=== PATIENT | female | born 1955 | race Caucasian/White ===

== ENCOUNTER 2018-01-12 10:23 | Emergency (ER) | payer MEDICARE, BC ==
[~2018-01-12] VITALS: Ht 162.6 cm; Wt 77.1 kg
[2018-01-12] MEDS ORDERED: DILTIAZEM HCL 5 MG/ML 5 ML VIAL IV STA (10:43)
[2018-01-12 10:53] LABS: BASOPHILS # (AUTO) 0.1 (0.0-0.1); BASOPHILS % 0.9 % (0.0-1.0); EOSINOPHILS # (AUTO) 0.5 (0.0-0.4); EOSINOPHILS % 3.9 % (0.0-6.0); HEMATOCRIT 49.3 % (34.2-44.1); HEMOGLOBIN 16.6 g/dL (12.0-16.0); LYMPHOCYTES % 17.7 % (18.0-39.1); MEAN CORPUSCULAR HEMOGLOBIN 35.8 pg (28-32); MEAN CORPUSCULAR HGB CONC 33.7 g/dL (31-35); MEAN CORPUSCULAR VOLUME 106.3 fL (81-99); MONOCYTES # (AUTO) 0.7 (0.2-0.8); MONOCYTES % 6.3 % (4.4-11.3); NEUTROPHILS # (AUTO) 8.1 (2.1-6.9); NEUTROPHILS % 70.2 % (38.7-80.0); PLATELET COUNT 406 x10e3/uL (140-360); RED BLOOD COUNT 4.64 x10e6/uL (3.6-5.1)
[2018-01-12 11:02] LABS: INR 1.01; PROTHROMBIN TIME 12.5 seconds (11.9-14.5)
[2018-01-12 11:09] LABS: ALBUMIN 3.3 g/dL (3.5-5.0); ALBUMIN/GLOBULIN RATIO 0.8 (0.8-2.0); ANION GAP 12.7 mmol/L (8-16); CALCIUM 9.4 mg/dL (8.4-10.2); CREATININE, SERUM 1.19 mg/dL (0.57-1.11); POTASSIUM 3.7 mmol/L (3.5-5.1)
[2018-01-12] MEDS ORDERED: HYDRALAZINE HCL 20 MG/ML VIAL IV ONE (11:30)
[2018-01-12] MEDS ORDERED: SODIUM CHLORIDE 0.9% 1000ML 2,000 ML ONE (11:43)
[2018-01-12] MEDS ORDERED: SODIUM CHLORIDE 0.9% 1000ML 1,000 ML IV STA (11:43)
--- NOTE | 2018-01-12 11:49 | Diagnostic Imaging Report ---
History:Left side numbness Comparison studies:None Technique: Axial images were obtained from the skull base to the vertex. Coronal and sagittal images reconstructed from the axial data. Intravenous contrast: None Findings: Scalp/skull: No abnormalities. Extra-axial spaces: No masses. No fluid collections. Brain sulci: Mildly prominent. Ventricles: Mild compensatory dilatation. No hydrocephalus. Parenchyma: Few hypodensities in the supratentorial white matter are small vessel ischemic changes. No masses, hemorrhage, acute or chronic cortical vascular insults. Sellar/suprasellar region: No abnormalities. Craniocervical junction: Patent foramen magnum. No Chiari one malformation. Incidental findings: Atherosclerotic calcifications in the carotid siphons . Impression: No acute abnormalities. Chronic findings: 1. Mild generalized volume loss. 2. Mild supratentorial white matter small vessel ischemic changes. Signed by: DR Cody Jackson M.D. on 01/12/2018 11:45 AM
[2018-01-12] MEDS ORDERED: DILTIAZEM HCL IV 5MG/ML 25 ML VIAL ONE ×2 (12:12→12:13)
[2018-01-12] MEDS ORDERED: DILTIAZEM HCL VIAL 0 ML ONE (12:13)
[2018-01-12 12:46] LABS: CREATINE KINASE 45 IU/L (29-168)
[2018-01-12] MEDS ORDERED: SODIUM CHLORIDE 0.9% 1000ML 1,000 ML IV SCH (13:15)
--- NOTE | 2018-01-12 17:08 | Consultation ---
DATE OF CONSULTATION: January 12, 2018 NEUROLOGY CONSULTATION HISTORY OF PRESENT ILLNESS: Ms. Stuart is a 62-year-old, right hand dominant woman with past medical history significant for hypertension, diabetes mellitus type 2, and tobacco use, who presented to the emergency center at [facility] on the morning of January 12, 2018, with symptoms concerning for a stroke. The patient awoke between 5 and 6 a.m. on the day of admission in her normal state of health. Sometimes between 8 and 8:30 a.m. on the day of admission, the patient experienced the acute onset of numbness affecting the fingertips of the left hand. Ms. Stuart took aspirin 325 mg by mouth when she noticed these symptoms. Sometime later, the patient arose to use the restroom. At that time, she noted left hemiparesis affecting the arm and leg equally, left hemihypesthesia affecting the face, arm, and leg, and an unsteady gait secondary to weakness of the left leg. Ms. Stuart does not report a visual field cut or other disturbance, dysarthria, aphasia, facial droop, dizziness, or confusion. Ms. Stuart notified emergency medical services and was transported via ambulance to the emergency center at [facility] for further evaluation and treatment. Upon admission to the emergency center, the patient's blood pressure was 207/88 mmHg with a pulse of 76 beats per minute. The patient's neurological examination was significant for left-sided weakness and numbness. A CT of the brain without contrast was performed and did not show evidence of recent large territorial ischemia, hemorrhage, mass or mass affect. I was notified by the emergency center attending physician at approximately 3-1/2 to 4 hours after symptom onset. After discussing the patient with the emergency center attending, treatment with intravenous tPA was recommended as the patient had no absolute contraindications to treatment with this medication and was still within the 4-1/2-hour time window. However, Ms. Stuart declined treatment with tPA. REVIEW OF SYSTEMS: Palpitations, shortness of breath, left facial numbness, left arm and leg weakness, left arm and leg numbness, impairment of gait. Otherwise, the 12-point review of systems is negative. PAST MEDICAL HISTORY: Hypertension, diabetes mellitus type 2, CML, polycythemia vera. PAST SURGICAL HISTORY: Hemorrhoidectomy. PAST HOSPITALIZATIONS: Surgeries and procedures listed, childbirth times 3. FAMILY HISTORY: Hypertension. SOCIAL HISTORY: The patient is a . She is retired. Ms. Stuart reports smoking 1 to 1-1/2 packs per day for the past 40-plus years. She does not report current or prior alcohol or recreational drug use. HOME MEDICATIONS: Aspirin 325 mg by mouth daily, Bystolic, glimepiride, hydroxyurea, allopurinol, vitamin B12 supplement, iron supplement. ALLERGIES: PENICILLIN. NO KNOWN FOOD ALLERGIES. NO KNOWN ALLERGIES TO LATEX. NO KNOWN ALLERGIES TO IODINE OR OTHER CONTRAST MATERIALS. PHYSICAL EXAMINATION VITAL SIGNS: Height 64 inches, weight 170 pounds. BMI 29.2 kg per meter squared. Blood pressure 179/89 mmHg. Pulse 77 beats per minute. Respiratory rate 18 breaths per minute. Oxygen saturation 98% on room air. GENERAL: Patient is awake and alert, does not appear distressed. Overweight. HEENT: Normocephalic, atraumatic. Pupils are equal, round and reactive to light. Moist mucous membranes. NECK: Supple. No appreciable thyromegaly. No appreciable carotid bruits. CARDIOVASCULAR: S1 and S2, regular rate and rhythm. No murmurs, rubs or gallops. RESPIRATORY: Clear to auscultation bilaterally. No wheezes, rhonchi or rales. EXTREMITIES: The skin is warm and dry. No clubbing, cyanosis, or edema. The posterior tibial and dorsalis pedis pulses are 2+ and symmetric. SKIN: No rashes or lesions. NEUROLOGIC EXAMINATION MEMORY/ATTENTION: The patient is awake and alert, oriented to person, place, time and situation. CRANIAL NERVES: Cranial nerve I: Not tested. Cranial nerves II, III, IV and : Pupils are equal and round, react briskly to light (from 4 mm to 2 mm). Extraocular movements are intact. No nystagmus. Cranial nerve V: Sensation to light touch and pinprick is diminished in the left V1 through V3 distributions. Strength of the temporalis and masseter muscles is within normal limits. Cranial nerve VII: The face is symmetric as are all facial movements. Strength is within normal limits. Cranial nerve VIII: Hearing is intact to finger rub bilaterally. Cranial nerve IX and X: Soft palate elevates equally and symmetrically. Cranial nerve XI: Normal strength of the bilateral sternocleidomastoid and trapezius muscles. Cranial nerve XII: The tongue protrudes midline and moves symmetrically from side to side. STRENGTH: Bulk is normal. Strength is 5/5 in the right deltoid, biceps, triceps, wrist flexors and extensors, finger flexors and extensors, intrinsic hand muscles, hip flexors, knee flexors and extensors, ankle dorsiflexion and plantarflexion, and intrinsic foot muscles. Tone is normal. The patient cannot lift the left arm or left leg against gravity. Strength is grossly 2/5 with decreased tone. DTRs: Deep tendon reflexes are 2+ and symmetric at the triceps, biceps, brachial radialis, patellas and Achilles. Plantar responses are flexor bilaterally. Absent clonus. SENSATION: Sensation is diminished to light touch and pinprick over the left arm and left leg. CEREBELLAR: Rwaczm-ligl-gfbxxs and heel-pierre movements are intact without dysmetria or other impairment on the right. Rapid alternating movements are intact on the right. Cerebellar function is impaired on the left, but within the bounds of paresis. GAIT: Deferred. SPEECH: Spontaneous speech is normal without appreciable dysarthria or aphasia. Repetition is intact. INVOLUNTARY MOVEMENTS: None. PRONATOR DRIFT: As per motor exam. LABORATORY DATA: Sodium 137, potassium 3.7, chloride 105, carbon dioxide 23, anion gap 12.7, BUN 12, creatinine 1.19, estimated GFR 46. TYJ-wy-xxyztuiluc ratio 10. Glucose 214, calcium 9.4, total bilirubin 0.4, AST 14, ALT 22, alkaline phosphatase 84, total protein 7.3, albumin 3.3, globulin 4.0, uwiqokc-fo-zjrmowwo ratio 0.8. Creatine kinase 45, CK-MB 1.40, troponin I less than 0.001. The CBC with differential and platelets reveals a white blood cell count of 11.55 with 70.2% neutrophils, 17.7% lymphocytes, 6.3% monocytes, 3.9% eosinophils and 0.9% basophils. The hemoglobin and hematocrit are 16.6 and 49.3 respectively. The platelet count is 406. PT 12.5 and INR 1.01. DIAGNOSTIC STUDIES: CT of the brain without contrast, 01/12/2018: On my review, there is no evidence of recent large territorial ischemia, hemorrhage, mass or mass affect. ASSESSMENT AND PLAN: Ms. Stuart is a 62-year-old, right hand dominant woman with multiple vascular risk factors, who presents with symptoms of subcortical stroke in the right middle cerebral artery distribution. The patient's neurological examination is significant for moderate to severe left hemiparesis of the left arm and left leg and hemihypesthesia to light touch and pinprick on the left. The patient's laboratory data and diagnostic studies have been reviewed and are documented above. The emergency center is attempting to transfer the patient to the [facility] for a higher level of care. If Ms. Stuart remains at [facility], recommendations are as follows: 1. Lipid panel and hemoglobin A1c. 2. MRI of the brain without contrast. 3. Echocardiogram. 4. Bilateral carotid artery ultrasound with Doppler. 5. Discontinue aspirin. 6. Prescribed Plavix 75 mg by mouth daily for stroke prophylaxis. 7. Allow permissive hypertension pending evaluation of the extracranial vasculature. Goal blood pressure is 160 to 200 over 70 to 100 mmHg. 8. Tight glycemic control. 9. Speech, occupational therapy, and physical therapy consultations. 10. Tobacco cessation counseling. 11. Defer treatment of the remaining medical comorbidities to the primary and other services. Thank you for this consultation. I will continue to follow this patient should she remain in the hospital. Time spent: 70 minutes. Job#: [id number]
== END 2018-01-12 14:42 | disposition other institution (70) ==
LOC: ER 10:23
DX: R53.1 Weakness (principal); R20.2 Paresthesia of skin; I63.9 Cerebral infarction, unspecified; D47.3 Essential (hemorrhagic) thrombocythemia; R26.2 Difficulty in walking, not elsewhere classified; I10 Essential (primary) hypertension; D45 Polycythemia vera; Z85.6 Personal history of leukemia
CPT/HCPCS: 36415; 70450; 80053; 82550; 82553; 84484; 85025; 85610; 93005; 99284; J0360; J7030

== ENCOUNTER → 2020-04-26 | Outpatient (CLI) | payer MEDICARE ==
--- NOTE | 2020-04-26 11:38 | Diagnostic Imaging Report ---
EXAMINATION: MRI of the cervical spine without contrast HISTORY: 64-year-old female with neck pain radiating to left shoulder/upper extremity COMPARISON: None available TECHNIQUE: Sagittal T1, T2, STIR; axial T2, gradient echo. FINDINGS: Curvature: Normal lordosis. Vertebrae: No evidence of neoplasm, infection, or fracture. Foramen magnum: No mass, Chiari malformation, or basilar invagination. Spinal Cord: Normal size and signal intensity. Soft Tissues: Unremarkable. Degenerative changes: C1-C2: Unremarkable. C2-C3: Unremarkable. C3-C4: Mild facet retrolisthesis on the left. No canal or foraminal stenoses. C4-C5: Asymmetric right disc disc bulge and small right paracentral superiorly migrated 3 mm AP diameter disc extrusion. Minimal flattening of the right ventral cord. Mild uncovertebral and facet arthrosis mainly on the left. Mild spinal canal and foraminal narrowing. C5-C6: Asymmetric left disc osteophyte complex formation, bilateral uncovertebral and facet arthrosis. Moderately severe right and severe left foraminal stenosis, compression upon the exiting left C6 root is suspected. Mild spinal canal stenosis. C6-C7: Disc osteophyte complex formation, bilateral uncovertebral and facet arthrosis. Mild spinal canal stenosis. Mild right and moderate left foraminal stenoses. C7-T1: Minimal disc bulge and facet necrosis. No spinal canal or foraminal stenosis. IMPRESSION: 1. Severe left and moderately severe right degenerative foraminal stenoses at C5-C6, probable compression upon the exiting left C6 root may explain the patient's symptoms. 2. Moderate degenerative foraminal stenoses on the left oral and mild on the right at C6-7. 3. Small right central disc herniation at C4-C5 flattens the ventral cord without definite compression or abnormal signal within the cord. 4. Mild degenerative canal stenosis at C5-C6 and C6-7. Signed by: Dr. Kristy Mitchell M.D. on 04/26/2020 11:34 AM
--- NOTE | 2020-04-26 12:19 | Diagnostic Imaging Report ---
TECHNIQUE: Magnetic resonance imaging of the LEFT SHOULDER was performed WITHOUT injected contrast. COMPARISON: None available. HISTORY: Left shoulder pain FINDINGS: MUSCLES AND TENDONS: Rotator Cuff: Tendons: Supraspinatus: Mild tendinosis along the anterior fibers of the supraspinatus tendon without discrete tear. Infraspinatus: Intact Teres Minor: Intact Subscapularis: Intact Muscles: No focal muscle atrophy. Biceps Tendon: The long head of the biceps tendon is intact and within the intertubercular groove. GLENOHUMERAL JOINT: Glenoid Labrum: Suspected sublabral foramen at the anterosuperior labrum. Fraying along the posterosuperior without discrete displaced labral tear. Articular Cartilage: Low-grade cartilage thinning along the glenoid without full-thickness defect. AC JOINT AND ACROMION: Mild hypertrophic degenerative changes of the acromioclavicular joint. Type II acromion. BONE: No specific evidence of a focal or infiltrative bone marrow replacing abnormality. No acute fracture. SOFT TISSUES: Soft tissue fullness within the rotator interval and mild thickening along the inferior glenohumeral ligament. IMPRESSION: 1. Mild supraspinatus tendinosis without rotator cuff tear. 2. Soft tissue fullness within the rotator interval and mild thickening along the inferior glenohumeral ligament. Findings can be seen with adhesive capsulitis in appropriate clinical setting. 3. Mild glenohumeral joint degenerative changes with low-grade cartilage thinning along the glenoid. 4. Mild hypertrophic degenerative changes of the acromioclavicular joint. Signed by: David Monroy MD on 04/26/2020 12:16 PM
== END ==
LOC: MRI 04-19 10:15
PROVIDERS: ATTEND Internal Medicine
DX: M54.2 Cervicalgia (principal); M25.512 Pain in left shoulder
CPT/HCPCS: 72141